=== PATIENT | female | born 1965 | race Caucasian/White ===

== ENCOUNTER 2022-04-25 14:18 | Outpatient (CLI) | payer BC ==
[2022-04-25 15:05] VITALS: BP 128/78
--- NOTE | 2022-04-25 15:05 | SLEEP CARE CONSULTATION ---
Information from patient questionnaire entered by Lemuel Christianson. I have reviewed and concur with the information entered by Lemuel Christianson. This document represents the service I personally performed and the decisions made by me, Anu Gaviria ARNP. History of Present Illness Service Date and Time: 04/25/2022 1418 Reason for Visit: New patient Chief Complaint: reports: Snoring, Fatigue, Frequent awakenings at night Date of Onset: 1-2YRS Usual bedtime: 10PM Time it takes to fall asleep: 10-30MIN Snores at night: Yes Observed to quit breathing while asleep: No Sleeps alone due to snoring: No Number of times waking at night: 2-3, hard to get back to sleep Reasons for waking at night: reports: Snoring, Pain, Other (BITING TONGUE, NIGHTMARES, HOT FLASHES). denies: Choking, Gasping for air Toss, Turn, or Twitch while sleeping: Yes Recalls having dreams: Yes Usually gets out of bed at: 630-7AM Feels refreshed in the morning: Yes Morning headache: No Sleepy or fatigued during the day: Yes (no energy; worse in afternoon) Ever fallen asleep while driving: No Takes day naps: Yes (almost daily; for 30-60 minutes) Dreams during day naps: Yes Prior sleep studies: No Additional HPI information: I had the pleasure of seeing THERESA HUMMEL today regarding the possibility of her having a sleep disorder. Her current complaints are snoring, fatigue and frequent night awakenings. She states she was not feeling well in the Fall and she was diagnosed with long Covid. She has had it twice. She took off 2 months of work due to her extreme daytime fatigue. She states she does snore and has some frequent awakenings at night. She denies observed pauses in breathing. She can fall asleep within 30 minutes but will wake up 2-3 times a night and has a hard time falling back to sleep. She feels overall she wakes up feeling refreshed in the morning without any headaches. Patient states she bites her tongue at night a couple times a month. She tells me that her mother was diagnosed with sleep apnea but did not tolerate the CPAP machine and stopped treatment. - Parasomnia Symptoms Ever been unable to move upon waking from sleep: No Walks in sleep: No Talks in sleep: Yes Ever acted out dreams in sleep: No Ever felt weak in the knees when startled or emotional: No Bothered by creepy, crawly, restless sensations in legs: Yes ("bottom of feet feel warm", tingling in legs; usually at night) Problems with memory or concentration: Yes (both; concentration may be worse) Subjective Initial [place] Sleepiness Scale score: 11 (04/24/22) Past Medical History Past Medical History: reports: Anxiety, Mood disorder, Other (LONG COVID, IBS, BACK PAIN) Social History The patient's occupation is a [employer] Patient is and lives in [place]. Have you smoked in the past 12 months: No Alcohol use: Yes Alcohol amount and frequency: 2GLASSES 2X A WEEK Caffeine use: Yes Caffeine amount and frequency: 2 CUPS COFFEE DAILY IN MORNING 02/10 CAFF Family History Family history of sleep disordered breathing: Yes Family Hx Sleep Apnea: Mother: Snoring, Sleep apnea - Untreated Allergies and Home Medications Known drug allergies: No Drug allergies reviewed: Yes Home medication list reviewed: Yes Allergy and home medication list: Medications Lexapro Vitamin D3 Review of Systems Weight gain over past 5 years: 10 Cardiovascular: denies: high blood pressure Respiratory: denies: shortness of breath Gastrointestinal: reports: heartburn, diarrhea, abdominal pain Neurological: denies: headaches, head trauma Psychiatric: reports: anxiety, depression, mood disorder Ear/Nose/Throat: reports: wisdom teeth removed. denies: tonsillectomy Endocrine: reports: too hot or cold. denies: thyroid disease Musculoskeletal: reports: joint pain, neck pain, back pain Immunologic: reports: itching Physical Exam Vital signs obtained and entered by: LEMUEL Rodríguez MA Blood Pressure: 128/78 (LEFT ARM) Cuff size: regular Heart Rate: 75 O2 Saturation: 97 Height: 5 ft 8 in Weight: 209 lb 6.4 oz Body Mass Index: 31.8 BMI Classification: Obese Neck circumference: 17 Nostrils: patent to airflow Mouth and throat: narrow oropharynx Soft palate: long Hard palate: normal Uvula: normal Uvula visualization: 25% Mallampati Class III Tongue: enlarged in size with teeth turpin on lateral edges Tonsils: 1+ Neck: normal w/o lymphadenopathy or thyromegaly Heart: regular rate and rhythm Lungs: clear bilaterally Impression and Plan 1. Suspected Obstructive Sleep Apnea-Hypopnea Syndrome, as suggested by a history of loud and irregular snoring, frequent awakening during the night, unrefreshed sleep, cognitive impairment, and excessive daytime sleepiness. Narrow oropharynx and obesity are common predisposing factors for obstructive sleep apnea-hypopnea syndrome. I recommend proceeding to polysomnography to confirm the diagnosis and to assess severity. If the patient has significant sleep disordered breathing, a manual CPAP titration study will also be performed to find the optimal treatment pressure. I informed the patient of what the sleep studies involve and after some discussion, obtained agreement to proceed. The pathophysiology of obstructive sleep apnea-hypopnea syndrome was discussed with the patient and health risks of cardiovascular and cerebrovascular disease if not treated. 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 Patient agreed to plan. * Schedule polysomnography * Avoid long distance driving or driving when feeling sleepy. * Avoid alcohol, sedative and muscle relaxant around bedtime. * Attempt to lose weight. * Review instructions provided by trained office staff on how to prepare for the sleep study. * Return for follow-up after sleep study completed. Counseling Topics: Weight loss health impact Visit Type: In Office Time Spent with Patient (minutes): 31 Provider Statement: I spent 100% of the Face to Face Visit with the patient with greater than 50% spent counseling the patient and coordination of care.
== END 2022-04-25 14:19 | disposition home or self-care (01) ==
LOC: SC 14:18
PROVIDERS: ATTEND Nurse Practitioner Family
DX: G47.10 Hypersomnia, unspecified (principal); R53.83 Other fatigue; G47.8 Other sleep disorders; R06.83 Snoring; E66.9 Obesity, unspecified; Z68.31 Body mass index [BMI] 31.0-31.9, adult
CPT/HCPCS: 99203; 99212

== ENCOUNTER 2022-06-10 14:29 | Outpatient (CLI) | payer BC | END 2022-06-10 14:30 | disposition home or self-care (01) | LOC: SC 14:29 | PROVIDERS: ATTEND Nurse Practitioner Family | DX: G47.33 Obstructive sleep apnea (adult) (pediatric) (principal); R09.02 Hypoxemia | CPT/HCPCS: 95806 ==

== ENCOUNTER 2022-07-02 15:15 | Outpatient (CLI) | payer BC ==
--- NOTE | 2022-07-02 15:37 | Sleep Patient Instructions ---
Sleep Center Visit Summary - Patient Visit Information Reason for Visit: Sleep study followup - Patient Instructions Additional Instructions: You are to start Positional therapy to control your sleep apnea. You may obtain positional belts or other commercial devices online. You may also use pillows to position yourself on your side or a T shirt with balls sewn into the back to help keep you on your side to sleep. We would like to follow up with you in a month to check effectiveness of therapy. Please follow up in the sleep care office in one month. - Clinic Information Contact: [facility] [address] [place] [id number] [email or web address] T: [phone]
[2022-07-02 15:40] VITALS: BP 120/66
--- NOTE | 2022-07-02 15:40 | SLEEP CARE CONSULTATION ---
Information from patient questionnaire entered by Zainab Christianson. I have reviewed and concur with the information entered by Zainab Christianson. This document represents the service I personally performed and the decisions made by , Anu Gaviria ARNP. History of Present Illness Service Date and Time: 07/02/2022 1515 Initial [place] Sleepiness Scale score: 11 (04/24/22) Current [place] Sleepiness Scale score: 11 (07/02/22) Additional HPI information: THERESA HUMMEL returns for follow up and results of the recently performed home sleep study. I explained the pathophysiology behind obstructive sleep apnea. We then spent quite a bit of time discussing different treatment options. For mild obstructive sleep apnea, surgery and oral appliance are alternatives to nasal CPAP therapy but in moderate or severe cases, nasal CPAP is the most effective and reliable treatment. Because apnea is primarily in supine position, then positional management therapy could be effective. Methods discussed such as positioning with pillows, using a T-shirt with tennis balls in the back or commercial products that have a pillow format on back to prevent supine sleep. I reviewed the impact of weight changes on sleep apnea and strongly recommended losing weight. Patient counseled not drink alcohol less than 4 hours before bedtime as it can increase snoring and apnea. Patient was cautioned about risks of drowsy driving until sleepiness symptoms resolve. Patient denies drowsy driving. Sleep Study - Results Type of Sleep Study: Polysomnography (COMPLETED 06/10/22) Prior sleep studies: No Polysomnography/Home Sleep Study results: Physician Impression: The quality of the study is fair due to unreliable pulse oximetry signal. The length of the study is adequate (> 240 minutes). Please also see the tabulated and graphic data. 1. Obstructive Sleep Apnea-Hypopnea (ICD-10 G47.33), mild, with an AHI of 6.6/hr and fernando SaO2 of 83%. During the study, the patient had 15 apneas (13 obstructive, 0 central, 2 mixed) and 39 hypopneas. The longest episode lasted 68.0 seconds. The respiratory events occurred more frequently during supine sleep (supine AHI was 13.5 and non-supine, 5.29). 2. Hypoxemia (ICD-10 R09.02), mild, with the lowest oxygen saturation of 83 % and 129.1 minutes with SaO2 under 90%. Baseline oxygen saturation was normal (Average oxygen saturation was 93%). Allergies and Home Medications Known drug allergies: No Drug allergies reviewed: Yes Home medication list reviewed: Yes (Naltrexone 1.5 mg daily; Lexapro 10 mg daily) Allergy and home medication list: Allergies No Known Drug Allergies Allergy (Verified 07/01/22 15:48) Review of Systems Review of systems same as previous: Yes (no changes) Physical Exam Vital signs obtained and entered by: ZAINAB Rodríguez MA Blood Pressure: 120/66 (LEFT ARM) Cuff size: long Heart Rate: 64 O2 Saturation: 99 Height: 5 ft 8 in Weight: 209 lb 6.4 oz Body Mass Index: 31.8 BMI Classification: Obese Impression and Plan 1. Obstructive Sleep Apnea-Hypopnea Syndrome, mild, with lowest oxygen saturation of 83%. Obviously this is the cause of the patients symptoms of unrefreshed sleep, and excessive daytime sleepiness. Positive pressure therapy could benefit anxiety and mood disorder. Since patients apnea is primarily in supine position, patient advised to try positional therapy and agreed with plan. He is also advised to lose weight as this will reduce snoring and apnea. An oral appliance can also be used for snoring but often is not covered by insurance. Follow up will be scheduled for one month to check effectiveness. 2. Obesity, unspecified. Currently patients BMI is 31.8. Obesity increases the risk of apnea and overall health risks especially cardiovascular and diabetes. Thus patient is advised to lose weight. * Positional therapy. * Attempt to lose weight. * Avoid alcohol consumption near bedtime. * Avoid supine sleep. * Return in one month. I will assess response to therapy at that time. Counseling Topics: Weight loss health impact Visit Type: In Office Time Spent with Patient (minutes): 20 Provider Statement: I spent 100% of the Face to Face Visit with the patient with greater than 50% spent counseling the patient and coordination of care.
== END 2022-07-02 15:16 | disposition home or self-care (01) ==
LOC: SC 15:15
PROVIDERS: ATTEND Nurse Practitioner Family
DX: G47.33 Obstructive sleep apnea (adult) (pediatric) (principal); E66.9 Obesity, unspecified; Z68.31 Body mass index [BMI] 31.0-31.9, adult
CPT/HCPCS: 99212; 99213

== ENCOUNTER 2023-09-20 10:01 | Emergency (ER) | payer BC ==
[2023-09-20 10:34] LABS: BASOPHILS # (AUTO) 0.1 10^3/uL (0.0-0.1); BASOPHILS % (AUTO) 0.4 %; EOSINOPHILS # (AUTO) 0.1 10^3/uL (0.0-0.7); EOSINOPHILS % (AUTO) 0.8 %; HCT - HEMATOCRIT 40.6 % (37.0-47.0); HGB - HEMOGLOBIN 13.5 g/dL (12.0-16.0); LYMPHOCYTES # (AUTO) 1.8 10^3/uL (1.5-3.5); LYMPHOCYTES % (AUTO) 14.2 %; MEAN CORPUSCULAR HEMOGLOBIN 28.7 pg (27.0-31.0); MEAN CORPUSCULAR HGB CONC 33.3 g/dL (32.0-36.0); MEAN CORPUSCULAR VOLUME 86.4 fL (81.0-99.0); MEAN PLATELET VOLUME 9.4 fL (7.9-10.8); MONOCYTES # (AUTO) 1.3 10^3/uL (0.0-1.0); MONOCYTES % (AUTO) 10.1 %; NEUTROPHILS # (AUTO) 9.6 10^3/uL (1.5-6.6); PLT - PLATELET COUNT 269 10^3/uL (130-450); RED CELL DISTRIBUTION WIDTH 12.7 % (12.0-15.0); WHITE BLOOD COUNT 12.9 x10^3/uL (4.8-10.8)
[2023-09-20 10:44] LABS: ALBUMIN 4.4 g/dL (3.2-5.5); ALBUMIN/GLOBULIN RATIO 1.3 (1.0-2.2); BILIRUBIN,TOTAL 0.7 mg/dL (0.2-1.0); CALCIUM 10.2 mg/dL (8.5-10.3); CREATININE 0.8 mg/dL (0.6-1.3); POTASSIUM 4.2 mmol/L (3.5-4.5); TOTAL PROTEIN 7.7 g/dL (6.4-8.9)
--- NOTE | 2023-09-20 11:07 | ED Physician Documentation ---
PD HPI FEMALE - Stated complaint Stated Complaint: ABD PX,CHE - Chief complaint Chief Complaint: Abd Pain - Additional information Additional information: Patient is a 57-year-old female presenting to the emergency department with abdominal pain and headache. Patient's symptoms started last night with midline abdominal pain radiating to right and left lower quadrants. She notes pain has progressively worsened. She notes mild nausea but no vomiting associated with her symptoms. She has had a history of appendectomy and cholecystectomy in the past but no other history of abdominal surgeries. She has a history of IBS but denies any other abdominal symptoms. She does not take any medications at home. She had normal bowel movement this morning with mild relief she denies any black or bloody stools no urinary symptoms this morning. Denies any fevers chills at home. No other sick contacts no viral URI symptoms. PD PAST MEDICAL HISTORY - Past Medical History Past Medical History: Yes Other Past Medical History: long covid - Past Surgical History Past Surgical History: Yes General: Cholecystectomy, Appendectomy Derm: Skin cancer surgery - Present Medications Home Medications: Ambulatory Orders Medication Instructions Recorded Confirmed Amox/Clav 875/125 [Augmentin] 1 each PO Q12H #20 tablet 09/20/23 polyethylene glycoL 3350 [Miralax] 1 packet PO PRN PRN 09/20/23 09/20/23 - Allergies Allergies/Adverse Reactions: Allergies Allergy/AdvReac Type Severity Reaction Status Date / Time No Known Drug Allergies Allergy Verified 09/20/23 10:09 - Social History Does the pt smoke?: No Smoking Status: Never smoker Does the pt drink ETOH?: Yes Does the pt have substance abuse?: No - Immunizations Immunizations are current?: Yes - POLST Patient has POLST: No PD ED PE NORMAL - Vitals Vital signs reviewed: Yes - General General: Alert and oriented X 3 - HEENT HEENT: Atraumatic - Neck Neck: Supple, no meningeal sign - Cardiac Cardiac: RRR, No murmur, No gallop, No rub - Respiratory Respiratory: No respiratory distress, Clear bilaterally - Abdomen Abdomen: Normal bowel sounds, Soft, Non distended, Other (Reproducible lower midline abdominal tenderness with reproducible right lower quadrant tenderness on examination mild guarding on examination but no rebound negative Rovsing sign. Active bowel sounds on auscultation.) - Rectal Rectal: Deferred - Back Back: No CVA TTP - Neuro Neuro: Alert and oriented X 3 - Psych Psych: Normal mood Results - Vitals Vitals: Vital Signs - 24 hr 09/20/23 09/20/23 09/20/23 10:06 10:09 12:09 Temperature 37.1 C Heart Rate 101 H 96 82 Respiratory 20 18 14 Rate Blood Pressure 182/89 H 154/109 H 162/92 H O2 Saturation 97 97 98 Oxygen O2 Source Room air - Labs Labs: Laboratory Tests 09/20/23 09/20/23 09/20/23 10:27 10:27 11:30 WBC 12.9 H RBC 4.70 Hgb 13.5 Hct 40.6 MCV 86.4 MCH 28.7 MCHC 33.3 RDW 12.7 Plt Count 269 MPV 9.4 Neut # (Auto) 9.6 H Lymph # (Auto) 1.8 Graham # (Auto) 1.3 H Eos # (Auto) 0.1 Baso # (Auto) 0.1 Absolute Nucleated RBC 0.00 Nucleated RBC % 0.0 Sodium 137 Potassium 4.2 Chloride 105 Carbon Dioxide 25 Anion Gap 7.0 BUN 10 Creatinine 0.8 Estimated GFR (MDRD) 74 L Glucose 115 H Calcium 10.2 Total Bilirubin 0.7 AST 17 ALT 23 Alkaline Phosphatase 69 Total Protein 7.7 Albumin 4.4 Globulin 3.3 Albumin/Globulin Ratio 1.3 Lipase 27 Urine Color YELLOW Urine Clarity CLEAR Urine pH 6.0 Ur Specific [place] <=1.005 Urine Protein NEGATIVE Urine Glucose (UA) NEGATIVE Urine Ketones NEGATIVE Urine Occult Blood TRACE-INTA Urine Nitrite NEGATIVE Urine Bilirubin NEGATIVE Urine Urobilinogen 0.2 (NORMAL) Ur Leukocyte Esterase NEGATIVE Ur Microscopic Review NOT INDICATED Urine Culture Comments NOT INDICATED - Rads (name of study) ct abdomen pelvis Relevant Findings:: EMP independent interpretation of test (inflammation noted around sigmoid colon concern for diverticulitis) PD Medical Decision Making - ED course Complexity details: reviewed old records, reviewed results, re-evaluated patient ED course: Patient is a 57-year-old female presenting to the emergency department with abdominal pain headache symptoms that started last night into this morning. Patient's symptoms progressively have been worsening. She notes no relief after bowel movement but denies any urinary symptoms as well. No vomiting at home. Vitals on arrival are stable. Patient is afebrile nontachycardic. Labs obtained while patient is in triage does show mild leukocytosis at 12.9 GFR slightly decreased at 74 but no significant MALLORY. Lipase within normal range no signs of pancreatitis. Discussed with patient concerns for possible diverticulitis versus small bowel obstruction versus appendicitis. Will obtain CT scan to further evaluate patient's symptoms. CT abdomen pelvis shows acute diverticulitis. No signs of complications no signs of abscess or rupture. Patient given a dose of Zosyn here in the e mergency department. Additionally there is an incidental finding on CT scan of angiolipoma but no suspicious lesions on right renal cyst. Patient updated on findings she is safe for discharge home feeling better after Toradol here in emergency department. Instructed patient to return to the emergency department with any worsening of abdominal pain nausea vomiting fevers. Will give Augmentin and outpatient treatment for treatment of diverticulitis. Patient understands and is agreeable with this plan. Departure - Departure Disposition: 01 Home, Self Care Clinical Impression: Diverticulitis, Abdominal pain, Leukocytosis Condition: Good Prescriptions: Amox/Clav 875/125 [Augmentin] 1 each PO Q12H #20 tablet Comments: Return with any fevers or chills worsening abdominal pain. These are signs of your diverticulitis worsening either forming an abscess or causing rupture in your abdomen. Follow-up with your PCP in outpatient setting for resolution of symptoms. You may require colonoscopy in the outpatient setting for evaluation as new onset diverticulitis has a very small percentage chance of being initial diagnosis of cancer. Please follow-up for scheduled colonoscopy in the outpatient setting. And return with any new or worsening symptoms. Forms: PCP List
[2023-09-20 11:39] LABS: BILIRUBIN,URINE NEGATIVE (NEGATIVE); GLUCOSE, URINE (UA) NEGATIVE (NEGATIVE); KETONES,URINE (UA) NEGATIVE (NEGATIVE); LEUKOCYTE ESTERASE, URINE NEGATIVE (NEGATIVE); NITRITE,URINE NEGATIVE (NEGATIVE); OCCULT BLOOD,URINE TRACE-INTA (NEGATIVE); PROTEIN,URINE NEGATIVE (NEGATIVE); UROBILINOGEN,URINE 0.2 (NORMAL) E.U./dL (NORMAL)
[2023-09-20 11:41] LABS: CLARITY,URINE CLEAR (CLEAR)
[2023-09-20] MEDS: KETOROLAC 15 MG/ML VIAL IVP STA (11:47)
[2023-09-20] MEDS ORDERED: iohexoL-300 100 ML VIAL ONE (12:19)
--- NOTE | 2023-09-20 13:38 | CT Report ---
PROCEDURE: Abdomen/Pelvis W INDICATIONS: midline abd pain concern for divertic CONTRAST: 100ml Omni 300 TECHNIQUE: After the administration of intravenous contrast, a CT scan of the abdomen and pelvis was performed. Images were recorded and evaluated at appropriate window settings. Reformats: coronal and sagittal. F or radiation dose reduction, the following was used: automated exposure control, adjustment of mA and /or kV according to patient size. COMPARISON: None. FINDINGS: Image quality: Diagnostic. Lower chest: Unremarkable. Liver: No solid mass. Gallbladder: Surgically absent. Biliary tree: No intrahepatic or extrahepatic dilation, accounting for age. Spleen: No splenomegaly. Pancreas: No pancreatic ductal dilation. Adrenals: No adrenal nodule. Kidneys and ureters: A 9 mm area of focal fat consistent with an angiomyolipoma is present within the left renal cortex. There is no suspicious solid mass. Stomach, bowel and peritoneum: There is a normal caliber without obstruction. Focal wall thickening i s seen within the sigmoid colon and numerous sigmoid diverticula are present. There is a small amount of free fluid and mesenteric edema in this area without extraluminal gas. Lymph nodes: No central or retroperitoneal adenopathy. Vessels: No infrarenal aortic aneurysm. Patent portal vein. PELVIS Reproductive organs: An IUD is seen within the uterus. Bladder: No abnormal wall thickening, accounting for underdistention. Pelvic lymph nodes: No pelvic adenopathy by size criteria. Bones: No aggressive osseous abnormality. Other: No significant ventral or inguinal hernia. IMPRESSION: Acute uncomplicated diverticulitis. Hepatic steatosis. Left renal angiomyolipoma, a benign entity which requires no further evaluation or surveillance. Reviewed by: Krista Petty MD on 09/20/2023 12:36 PM [facility] Approved by: Krista Petty MD on 09/20/2023 12:36 PM AKDT Station ID: [id number]
[2023-09-20] MEDS: PIPERACILLIN/TAZOBACTAM 3.375 GM in SODIUM CHLORIDE 0.9% MINIBAG 100 ML IV STA (14:22)
[2023-09-20 14:53] VITALS: BP 142/79; O2SAT 96
== END 2023-09-20 14:54 | disposition home or self-care (01) ==
LOC: ED 10:01
DX: K57.32 Diverticulitis of large intestine without perforation or abscess without bleeding (principal); D72.829 Elevated white blood cell count, unspecified
CPT/HCPCS: 36415; 74177; 80053; 81003; 83690; 85025; 96365; 96375; 99284; Q9967; 81001; 87086